=== PATIENT | male | born 1945 | race Caucasian/White ===

== ENCOUNTER 2022-12-12 08:55 | Outpatient (CLI) | payer MEDICARE, SELFPAY | END 2022-12-12 08:56 | disposition home or self-care (01) | LOC: AMB 12-14 13:22 | PROVIDERS: PCP Family Medicine; Visit Provider Emergency Medicine Emergency Medical Services | DX: R41.82 Altered mental status, unspecified (principal); R47.01 Aphasia | CPT/HCPCS: A0425; A0427 ==

== ENCOUNTER 2022-12-12 09:28 | Emergency (ER) | payer MEDICARE, SELFPAY ==
[2022-12-12] VITALS (17 sets, daily range): BP systolic 129–164; BP diastolic 95–125; PULSE 68–88; RESP 14–18; TEMP 36.4–36.7; O2SAT 93–99; BMI 28.1
--- NOTE | 2022-12-12 09:31 | CRLHL7_ITS ---
For Patients: As a result of the Century Cures Act, medical imaging exams and procedure reports are released immediately into your electronic medical record. You may view this report before your referring provider. If you have questions, please contact your health care provider. INDICATION: Aphasia TECHNIQUE: CT of the head without contrast. Coronal and sagittal reformats. Bone and soft tissue algorithms. COMPARISON: No prior studies available for comparison at this institution. FINDINGS: Large hyperdense acute intraparenchymal hematoma in the left frontal lobe measuring 6.3 cm AP x 4.5 cm TR x 6 cm craniocaudal with small subarachnoid hemorrhage along the left frontal convexity. Moderate adjacent vasogenic edema results in 9 mm rightward midline shift. No evidence of acute cortical infarction. Moderate generalized cerebral and cerebellar parenchymal volume loss. Oval 0.8 cm hyperdense lesion in the region of the anterior roof of the 3rd ventricle concerning for colloid cyst, less likely intraventricular blood products. Moderate regions of decreased attenuation within the periventricular and subcortical white matter of both cerebral hemispheres most likely reflects chronic microvascular ischemic disease and age related change in this patient. Vascular calcifications within the carotid siphons. Orbital contents are normal. No calvarial fractures. No lytic or sclerotic osseous lesions within the calvarium or skull base. Scalp and other imaged soft tissue structures are normal. Mastoid air cells are clear. Polypoid mucosal thickening in the maxillary sinuses. Acute findings were discussed with Dr. Dillard at 9:45 a.m. IMPRESSION: 1. Large hyperdense acute intraparenchymal hematoma in the left frontal lobe with small adjacent subarachnoid hemorrhage along the left frontal convexity. Moderate adjacent vasogenic edema results in 9 mm rightward midline shift. Consider MRI with contrast to evaluate for underlying mass or vascular malformation. 2. Oval 0.8 cm hyperdense lesion in the region of the anterior roof of the 3rd ventricle concerning for colloid cyst, less likely intraventricular blood products. 3. Moderate generalized parenchymal volume loss and chronic small vessel ischemic changes. Please note that all CT scans at this facility use dose modulation, iterative reconstruction, and/or weight-based dosing when appropriate to reduce radiation dose to as low as reasonably achievable. Dictated by Morgan Castillo MD @ 12/12/2022 9:52:43 AM (Electronically Signed)
--- NOTE | 2022-12-12 09:32 | ED.GENADULT ---
HPI - General Adult General Chief complaint: Neuro Symptoms/Altered Deficit Stated complaint: CVA Time Seen by Provider: 12/12/22 09:31 History of Present Illness HPI narrative: This 77-year-old male comes in by ambulance because of aphasia. These symptoms started an hour prior to arrival at approximately 8:30 a.m.. The patient arrives by ambulance and a code stroke is initiated. He came directly to CT imaging where I did an initial evaluation. He did not speak at all except at 1 point he said no when I asked if he had a headache. He does not appear to be in acute distress. Related Data Home Medications Medication Instructions Recorded Confirmed metoprolol tartrate 50 mg tablet 50 mg PO BID 12/12/22 12/12/22 warfarin 2.5 mg tablet PO 12/12/22 Review of Systems Status of ROS: Reports: unobtainable due to mental status PFSH [facility], [facility] Social History service: No Exam Narrative: Exam Narrative: Constitutional: Well-developed, well-nourished, no acute distress. HEENT: Normocephalic, atraumatic. Neck: Normal range of motion. Nontender. Supple. Heart: Irregular. No murmurs. Normal rate. Intact distal pulses. Lungs: Clear to auscultation. No chest discomfort. No wheezes, rhonchi, or rales. Abdomen: Normal bowel sounds. Nontender. No rebound tenderness. Genitalia: Deferred. Extremities: No injury. Skin: Intact. No rash. Warm. No erythema or pallor. Neurologic: Aphasia. He does not follow commands. He is moving his upper extremities bilaterally. I was unable to examine [id number], pronator drift, sales planner strength, and leg function as he does not cooperate. He does not show any sign of facial asymmetry. Nursing notes and vitals signs are reviewed. GCS is 15 as he did answer once appropriately for best verbal response and he did squeeze my fingers bilaterally when asked once. I was unable to perform a complete NIH stroke scale assessment as the patient is nonverbal and does not cooperate. He is alert and responsive. His eyes are functioning normally. He did squeeze my hands. There is no evidence of visual field loss. He has no facial asymmetry. He is aphasic. Other functions of the NIH stroke scale are not assessed. Const: Vital Signs, click to edit/add: Vital Signs - 24 hr 12/12/22 09:31 12/12/22 09:47 12/12/22 10:00 Temperature 97.5 F L Pulse Rate [Pulse Oximeter] 81 81 80 Respiratory Rate 18 18 Blood Pressure [Le ft Upper Arm] 137/106 H 137/106 H Pulse Oximetry 97 97 Oxygen Delivery Me thod Room Air Room Air Course Vital Signs Vital signs: Initial Vital Signs Temperature 97.5 F L 12/12/22 09:31 Temperature Source Temporal Artery Scan 12/12/22 09:31 Pulse Rate 79 12/12/22 09:31 Pulse Rhythm Regular 12/12/22 09:31 Respiratory Rate 18 12/12/22 09:31 Blood Pressure 137/106 H 12/12/22 09:31 Blood Pressure Mean 116 H 12/12/22 09:31 Blood Pressure Position Supine 12/12/22 09:31 Pulse Oximetry 97 12/12/22 09:31 Oxygen Delivery Method Room Air 12/12/22 09:31 Vital Signs Temperature 97.5 F L 12/12/22 09:31 Pulse Rate 79 12/12/22 09:31 Respiratory Rate 18 12/12/22 09:31 Blood Pressure 137/106 H 12/12/22 09:31 Pulse Oximetry 97 12/12/22 09:31 Oxygen Delivery Method Room Air 12/12/22 09:31 Temperature 97.5 F L 12/12/22 09:31 Pulse Rate 80 12/12/22 10:00 Respiratory Rate 18 12/12/22 09:47 Blood Pressure 137/106 H 12/12/22 09:47 Pulse Oximetry 97 12/12/22 09:47 Oxygen Delivery Method Room Air 12/12/22 09:47 Medical Decision Making [facility] Narrative Medical decision making narrative: This patient comes in under a code stroke. He went immediately to CT imaging where CT shows evidence of a large left frontal hemorrhage. The patient has atrial fibrillation and is taking Coumadin. He has a systolic blood pressure in the 130s. I was unable to do a full neurologic exam. The patient is alert and is not showing any compromise in his airway. EKG shows atrial fibrillation. His INR returned yesterday at 2.6. The patient received vitamin K 5 mg intravenously. Based on his weight and a presumed INR in therapeutic range he received Kcentra 2000 mg intravenously. His blood pressure has persisted at around 120-130 for systolic value. I spoke with a neurologist in the tele stroke program initially who referred me to neuro surgery because of the hemorrhagic nature of this cerebrovascular accident. I then spoke with the neurosurgeon, Dr. Morton who affirmed these treatment plans with the goal to maintain blood pressure below 140 systolic. The patient does take metoprolol and did take his dose this morning. His last dose of Coumadin was last evening. I spoke also with Dr. Constantino who is the modeling teacher on-call at [facility]. He agrees to his transfer there for further evaluation and treatment. I did communicate with the patient's family that this is a very serious injury. Time spent in critical care of this patient was 45 minutes. Lab Data Labs: Lab Results 12/12/22 Range/Units 09:39 WBC 4.00 L (4.50-11.00) K/uL RBC 4.15 L (4.30-5.90) m/uL Hgb 12.7 L (13.5-17.5) gm/dL Hct 39.1 (37.0-53.0) % MCV 94 (80-100) fL MCH 31 (26-34) pg MCHC 33 (32-36) gm/dL RDW Coeff of Diamond 13.1 (11.5-15.5) % Plt Count 115 L (140-440) K/uL Neut % (Auto) 75.0 H (42.0-72.0) % Lymph % (Auto) 15.0 L (20-44) % Pitkin % (Auto) 7.0 (0.0-11.0) % Eos % (Auto) 2.0 (0.0-7.0) % Baso % (Auto) 0.5 (0.0-3.0) % Neut # (Auto) 3.00 (1.7-7.0) K/uL Lymph # (Auto) 0.60 L (0.90-2.90) K/uL Pitkin # (Auto) 0.30 (0.00-0.90) K/UL Eos # (Auto) 0.10 (0.00-0.50) K/uL Baso # (Auto) 0.00 (0.00-0.30) K/uL Abs Immat Gran (auto) 0.00 (0.00-0.30) K/uL Imm/Tot Granulo (auto) 0.5 % Imaging Data CT scan - head: Radiologist's impression: 1. Large hyperdense acute intraparenchymal hematoma in the left frontal lobe with small adjacent subarachnoid hemorrhage along the left frontal convexity. Moderate adjacent vasogenic edema results in 9 mm rightward midline shift. Consider MRI with contrast to evaluate for underlying mass or vascular malformation. 2. Oval 0.8 cm hyperdense lesion in the region of the anterior roof of the 3rd ventricle concerning for colloid cyst, less likely intraventricular blood products. 3. Moderate generalized parenchymal volume loss and chronic small vessel ischemic changes. ECG Data Attestation: I personally reviewed and interpreted this ECG as follows: Interpretation: Atrial fibrillation. Rate is 79 beats per minute. There are no specific ST or T-wave abnormalities. Critical Care Time Critical Care Time Total Critical Care Time in Minutes: 45 Discharge Plan Discharge Clinical Impression: Cerebrovascular accident, hemorrhagic, Cerebrovascular accident Patient Disposition: [facility] Condition: Unchanged Prescriptions: No Action warfarin 2.5 mg tablet PO metoprolol tartrate 50 mg tablet 50 mg PO BID Stand Alone Forms: [email or web address] Info Instructions
[2022-12-12 09:55] LABS: Basophils Percent Auto 0.5 % (0.0-3.0); Hematocrit 39.1 % (37.0-53.0); Hemoglobin* 12.7 gm/dL (13.5-17.5); Immature Granulocytes Pct Auto 0.5 %; Mean Corpuscular HGB Conc 33 gm/dL (32-36); Mean Corpuscular Hemoglobin 31 pg (26-34); Mean Corpuscular Volume 94 fL (80-100); Platelet Count* 115 K/uL (140-440); RDW Coefficient of Variation % 13.1 % (11.5-15.5); Red Blood Count 4.15 m/uL (4.30-5.90)
[2022-12-12 09:58] LABS: Slide Review Reflex No
[2022-12-12] MEDS: PHYTONADIONE (VIT K1) 5 MG in 0.9 % SODIUM CHLORIDE 50 ml 50 ML 100 MG IVPB (10:03)
--- NOTE | 2022-12-12 10:15 | ED.NURSE ---
0931-Arrival by EMS, straight to CT. in imaging on Pt arrival. 0938-Pt to 8. 0939-Stroke Neuro paged. 0948-Neurosurgeon speaking to Dr. Baxter. EKG done. at bedside. 1008-Pt accepted by neurosurgeon. Instructed to wait for call with bed number from [facility] before calling [facility] for transport.
[2022-12-12 10:25] LABS: Chloride* 105 mmol/L (96-114); Potassium* 4.6 mmol/L (3.6-5.1); Sodium* 140 mmol/L (135-149)
[2022-12-12 10:28] LABS: Anion Gap 3 mEq/L (7-15); Carbon Dioxide* 32 mmol/L (20-32); Creatinine* 0.8 mg/dL (0.5-1.5); Est. Creatinine Clearance* 61.86; Estimated Glomerular Filt Rate 91 ml/min; INR 2.42 (0.91-1.10); Prothrombin Time 27.5 Seconds
[2022-12-12 10:29] LABS: Blood Urea Nitrogen* 21 mg/dL (7-30); Calcium* 8.8 mg/dL (8.4-10.6); Glucose* 128 mg/dL (60-115)
--- NOTE | 2022-12-12 10:31 | ED.NURSE ---
1022-ANW RN called for report. 1029-[facility] notified.
--- NOTE | 2022-12-12 10:36 | PC.NURSE ---
pt here at bedside, eddie. will be meeting son at home and driving to [facility] where pt is being transferred to. report given to amy vieira at [facility] [phone]. will call when pt leaves for transfer. pt unable to follow commands, verbalize/communicate at all. did give a smile when she said she loved him, he did give a frown when she asked if he wanted music to listen to. pt moving arms, hands around in bed.
--- NOTE | 2022-12-12 10:52 | ED.NURSE ---
1050-Report given to EMS by NAFISA Chapman.
[2022-12-12] MEDS: LABETALOL HCL 5 MG/ML inj 10 MG IVP (11:00)
--- NOTE | 2022-12-12 11:02 | PC.NURSE ---
EMS here for transport to [facility], pts here and will be riding with son to [facility]. Report updated to NAFISA Woods at [facility].
== END 2022-12-12 11:07 | disposition short-term general hospital (02) ==
PROVIDERS: Emergency Provider Emergency Medicine Emergency Medical Services; PCP Family Medicine
DX: I62.9 Nontraumatic intracranial hemorrhage, unspecified (principal)
CPT/HCPCS: 36415; 70450; 80048; 84484; 85025; 85610; 93005; 96365; 96375; 99285; J3430; J7168

== ENCOUNTER 2022-12-12 10:51 | Outpatient (CLI) | payer MEDICARE, SELFPAY | END 2022-12-12 10:52 | disposition home or self-care (01) | LOC: AMB 12-14 19:52 | PROVIDERS: PCP Family Medicine; Visit Provider Emergency Medicine Emergency Medical Services | DX: I61.9 Nontraumatic intracerebral hemorrhage, unspecified (principal) | CPT/HCPCS: A0425; A0428 ==